=== PATIENT | female | born 1960 | race Caucasian/White ===

== ENCOUNTER 2020-08-20 07:50 | Emergency (ER) | payer OTHER, MEDICAID, SELFPAY ==
[2020-08-20 07:54] VITALS: BP 142/79; PULSE 72; RESP 20; TEMP 36.3; O2SAT 100
--- NOTE | 2020-08-20 08:10 | ED.DENTAL ---
HPI - Dental/Oral General Chief complaint: Dental/Oral Stated complaint: toothache/swelling Time Seen by Provider: 08/20/20 08:05 Source: patient and RN notes reviewed Mode of arrival: ambulatory Limitations: no limitations History of Present Illness HPI Narrative: Patient is 60 years old white female woke up yesterday morning with pain at the left lower teeth. Today surrounded by swelling. Last time was seen a dentist over 1 year ago. Patient denies any fever, chills, nausea, vomiting, headache Related Data Home Medications Medication Instructions Recorded Confirmed Sinus Med 02/16/19 celecoxib [Celebrex] 50 mg PO BID 02/16/19 insulin glargine [Lantus U-100 40 unit SUBCUT HS 02/16/19 Insulin] lorazepam 1 mg PO TID PRN 02/16/19 omeprazole 40 mg PO DAILY 02/16/19 Allergies Allergy/AdvReac Type Severity Reaction Status Date / Time hydrocodone Allergy Unknown Itching Verified 02/16/19 15:17 morphine Allergy Unknown Nausea and Verified 02/16/19 15:17 Vomiting tramadol Allergy Unknown Itching Verified 02/16/19 15:17 Review of Systems Review of Systems: Narrative: CONSTITUTIONAL: Denies fever, chills, or sweats. EYES: Denies visual changes, redness, or discharge. ENT: Denies rhinorrhea, congestion, sore throat, or otalgia. CARDIOVASCULAR: Denies chest pain, palpitations, or edema. RESPIRATORY: Denies cough or dyspnea. GASTROINTESTINAL: Denies abdominal pain, nausea, vomiting, or diarrhea. GENITOURINARY: Denies dysuria or hematuria. SKIN: Denies rash or itching. MUSCULOSKELETAL: Denies back pain, joint pain, or myalgia. NEUROLOGIC: Denies headache, numbness, or weakness. PSYCHIATRIC: Denies anxiety or depression. [facility] Past Medical History Medical History Diabetes Motor nerve conduction block Sciatica Surgical History Surgical History Hx of cholecystectomy Hx of tonsillectomy Family History Family History Father Cerebrovascular accident Family history of heart disease in male family member before age 55 Patient's father is Sibling Carcinoma of colon Family history of diabetes mellitus in first degree relative Grandparent Family history of malignant neoplasm of breast Mother Patient's mother is Social History Social History Smoking status: Never smoker Alcohol intake: never Gender identity (if verbalized by the patient): Female Exam Narrative: Exam Narrative: General appearance: Well-developed, well-nourished Skin: Normal color Head: Normocephalic, nontraumatic Eyes: Clear conjunctiva Neck: Supple, nontender Chest and respiratory: Airway patent, no respiratory distress, no accessory muscle use Heart: Regular rate/rhythm Neurologic: Alert and oriented ?3, [employer] is normal as tested, no gross motor deficit HENMT: Mouth: Yes Normal oral and palatal mucosa present, Yes lip normal, Yes tongue normal, Yes oropharynx normal and Yes moist mucous membranes Teeth and gingiva: abnormal tooth and associated gingiva (14 And 15 left upper), caries (Widespread), gingiva abnormal and poor dentition (Widespread) Course Course Emergency Course: Stable Vital Signs Vital signs: Vital Signs Temperature 36.3 C L 08/20/20 07:54 Pulse Rate 72 08/20/20 07:54 Respiratory Rate 20 08/20/20 07:54 Blood Pressure 142/79 H 08/20/20 07:54 Pulse Oximetry 100 08/20/20 07:54 Temperature 36.3 C L 08/20/20 07:54 Pulse Rate 72 08/20/20 07:54 Respiratory R
[2020-08-20 08:31] VITALS: PULSE 70; RESP 14; O2SAT 99
== END 2020-08-20 08:32 | disposition home or self-care (01) ==
LOC: ANHED 08:23
PROVIDERS: Emergency Provider Emergency Medicine; PCP Internal Medicine
DX: K02.9 Dental caries, unspecified (principal); E11.9 Type 2 diabetes mellitus without complications; Z79.4 Long term (current) use of insulin
CPT/HCPCS: 99283

== ENCOUNTER 2021-03-12 15:16 | Emergency (ER) | payer OTHER, MEDICAID, SELFPAY ==
[2021-03-12 15:21] VITALS: BP 166/100; PULSE 99; RESP 17; TEMP 36.4; O2SAT 98
--- NOTE | 2021-03-12 15:24 | ECG_ITS ---
Measurements Intervals [place] Rate: 94 P: 47 ID: [id number] QRS: 12 QRSD: 88 T: 55 QT: 338 QTc: 423 Interpretive Statements SINUS RHYTHM ATRIAL PREMATURE COMPLEX BORDERLINE R WAVE PROGRESSION, ANTERIOR LEADS CONSIDER INFERIOR INFARCT, AGE INDETERMINATE BORDERLINE ST ABNORMALITY- HIGH LATERAL LEADS BASELINE ARTIFACT- III, AVR, AVL, AVF, V5-V6 ABNORMAL ECG Electronically Signed On 03-12-2021 17:06:55 COMPUTER SERVICE TECHNICIAN by Raymundo Castañeda D.O.
[2021-03-12 15:26] LABS: Glucose Point of Care 210 mg/dl (65-105)
--- NOTE | 2021-03-12 19:52 | PC.NURSE ---
Called for patient to go to room, no answer and not seen in waiting room.
--- NOTE | 2021-03-12 20:14 | PC.NURSE ---
Patient called again to be taken to a room, no answer.
== END 2021-03-13 04:28 | disposition left against medical advice (07) ==
LOC: ANHED 20:23
PROVIDERS: Emergency Provider Emergency Medicine; PCP Internal Medicine
DX: Z53.21 Procedure and treatment not carried out due to patient leaving prior to being seen by health care provider (principal); R73.9 Hyperglycemia, unspecified
CPT/HCPCS: 82948; 93005; 99199

== ENCOUNTER 2021-12-24 12:59 | Emergency (ER) | payer MEDICARE, MEDICAID, SELFPAY ==
--- NOTE | ~2021-12-24 | XR_ITS ---
EXAMINATION: XR foot LT min 3V DATE: 12/24/2021 14:08 INDICATION: Left foot injury and pain and swelling. TECHNIQUE: 4 views of left foot were obtained. COMPARISON: None. FINDINGS: Bone alignment is normal. No fracture. There is mild osteoarthritis at first metatarsophala ngeal joint and some of the interphalangeal joints. There is an enthesophyte at plantar aspect of gavin caneal tuberosity. IMPRESSION: 1. Mild polyarticular osteoarthritis. Reviewed, dictated and finalized at location A.
--- NOTE | ~2021-12-24 | XR_ITS ---
EXAMINATION: XR ankle LT min 3V DATE: 12/24/2021 14:07 INDICATION: Left ankle injury and swelling. TECHNIQUE: 4 views of left ankle were obtained. COMPARISON: None. FINDINGS: Bone alignment is normal. No fracture. Joint spaces are normal. There is an enthesophyte at plantar aspect of calcaneal tuberosity. IMPRESSION: 1. No fracture. Reviewed, dictated and finalized at location A. IMPRESSION: 1. No fracture.
[2021-12-24 13:01] VITALS: BP 109/63; PULSE 82; RESP 14; TEMP 36.4; O2SAT 98
--- NOTE | 2021-12-24 14:21 | ED.LOWEXIN ---
HPI - Extremity Injury (Lower) General Chief Complaint: Extremity Injury, Lower Stated Complaint: left foot/ankle injury Time Seen by Provider: 12/24/21 13:11 History of Present Illness HPI Narrative: 61-year-old female presents the emergency room for evaluation of left ankle pain. Patient states 2 days ago she stepped in a hole twisting her ankle. Has been able to ambulate but with pain. Denies any other injuries. Related Data Home Medications Medication Instructions Recorded Confirmed Sinus Med 02/16/19 celecoxib 50 mg capsule (Celebrex) 50 mg PO BID 02/16/19 insulin glargine 100 unit/mL 40 unit subcut HS 02/16/19 subcutaneous solution (Lantus U-100 Insulin) lorazepam 1 mg tablet 1 mg PO TID PRN Anxiety 02/16/19 omeprazole 40 mg capsule,delayed 40 mg PO DAILY 02/16/19 release Allergies Allergy/AdvReac Type Severity Reaction Status Date / Time hydrocodone Allergy Unknown Itching Verified 03/12/21 15:24 morphine Allergy Unknown Nausea and Verified 03/12/21 15:24 Vomiting tramadol Allergy Unknown Itching Verified 03/12/21 15:24 Review of Systems Review of Systems: CONSTITUTIONAL: Denies fever, chills, or sweats. EYES: Denies visual changes, redness, or discharge. ENT: Denies rhinorrhea, congestion, sore throat, or otalgia. CARDIOVASCULAR: Denies chest pain, palpitations, or edema. RESPIRATORY: Denies cough or dyspnea. GASTROINTESTINAL: Denies abdominal pain, nausea, vomiting, or diarrhea. GENITOURINARY: Denies dysuria or hematuria. SKIN: Denies rash or itching. MUSCULOSKELETAL: Reports left ankle pain NEUROLOGIC: Denies headache, numbness, dizziness, or weakness. PSYCHIATRIC: Denies anxiety or depression. [facility] Past Medical History Medical History Diabetes Motor nerve conduction block Sciatica Surgical History Surgical History Hx of cholecystectomy Hx of tonsillectomy Family History Family History Father Cerebrovascular accident Family history of heart disease in male family member before age 55 Patient's father is Sibling Carcinoma of colon Family history of diabetes mellitus in first degree relative Grandparent Family history of malignant neoplasm of breast Mother Patient's mother is Social History Social History Smoking status: Never smoker Alcohol intake: never Gender identity (if verbalized by the patient): Female Exam Narrative: GENERAL: Well-appearing, well-nourished, no physical limitations, and in no acute distress. HEAD: Normocephalic, atraumatic. EYES: Conjunctivae normal, PERRLA and EOMI. CHEST: Clear to auscultation. No respiratory distress. No wheezes rales or rhonchi. No tenderness. HEART: Regular rate and rhythm. No murmur heard. Normal peripheral pulses. BACK: No CVA tenderness; No cervical/thoracic/lumbar tenderness, step-offs, bony abnormality; FROM EXTREMITIES: Left ankle: Tenderness to the lateral malleolus extending to the midfoot. Minimal soft tissue swelling. No joint laxity. Full range of motion. No obvious bony abnormality. Neurovascular is intact distally SKIN: Warm, dry, no rash. No noted wounds NEURO: No focal deficits. Alert and oriented x3. MAEW. CN's II-XI intact bilaterally, normal gait PSYCH: Cooperative. Normal mood and affect. Course Vital Signs Vital signs: Vital Signs Temperature 36.4 C 12/24/21 13:01 Pulse Rate 82 12/24/21 13:01 Respiratory Rate 14 12/24/21 13:01 Blood Pressure 109/63 12/24/21 13:01 Pulse Oximetry 98 12/24/21 13:01 Oxygen Delivery Room Air 12/24/21 13:01 Temperature 36.4 C 12/24/21 13:01 Pulse Rate 82 12/24/21 13:01 Respiratory Rate 14 12/24/21 13:01 Blood Pressure 109/63 12/24/21 13:01 Pulse Oximetry 9
[2021-12-24 14:51] VITALS: BP 134/86; PULSE 68; RESP 16; O2SAT 98
== END 2021-12-24 14:58 | disposition home or self-care (01) ==
PROVIDERS: Emergency Provider Nurse Practitioner Family; PCP Internal Medicine
DX: S93.402A Sprain of unspecified ligament of left ankle, initial encounter (principal); S96.912A Strain of unspecified muscle and tendon at ankle and foot level, left foot, initial encounter; E11.9 Type 2 diabetes mellitus without complications; Z79.4 Long term (current) use of insulin; X50.9XXA Other and unspecified overexertion or strenuous movements or postures, initial encounter
CPT/HCPCS: 73610; 73630; 99283

== ENCOUNTER 2024-09-11 10:18 | Emergency (ER) | payer MEDICARE, MEDICAID, SELFPAY ==
[2024-09-11 10:31] VITALS: BP 147/79; PULSE 80; RESP 18; TEMP 36.4; O2SAT 98
--- NOTE | 2024-09-11 10:44 | ED_ITS ---
HPI - Skin/Abscess/Foreign Bdy General Chief complaint: Skin/Abscess/Foreign Body Stated complaint: RASH Source: patient Mode of arrival: ambulatory Limitations: no limitations History of Present Illness HPI narrative: 64 y/o female presented for c/o rash to left forearm for 3 weeks. Says it is spreading from wrist to forearm. Described as red itchy blisters. Denies pain or drainage. Has been applying neosporin and calamine, and takes daily Zyrtec. Denies any other location of rash. Denies lip, tongue, or throat swelling, shortness of breath or wheezing. Denies changes to soap, detergent, lotion, or any other exposures. No one else in the house or any contacts with similar symptoms. Related Data Home Medications ?Medication ?Instructions ?Recorded ?Confirmed ?Last Taken ?Type Sinus Med 02/16/19 Unknown History celecoxib 50 mg capsule (Celebrex) 50 mg PO BID 02/16/19 Unknown History insulin glargine 100 unit/mL 40 unit subcut HS 02/16/19 Unknown History subcutaneous solution (Lantus U-100 Insulin) lorazepam 1 mg tablet 1 mg PO TID PRN Anxiety 02/16/19 Unknown History omeprazole 40 mg capsule,delayed 40 mg PO DAILY 02/16/19 Unknown History release levocetirizine 5 mg tablet mg 09/11/24 Unknown History semaglutide 1 mg/dose (4 mg/3 mL) mg subcut 09/11/24 Unknown History subcutaneous pen injector (Ozempic) Allergies Allergy/AdvReac Type Severity Reaction Status Date / Time hydrocodone Allergy Unknown Itching Verified 03/12/21 15:24 morphine Allergy Unknown Nausea and Verified 03/12/21 15:24 Vomiting tramadol Allergy Unknown Itching Verified 03/12/21 15:24 Review of Systems Review of Systems: CONSTITUTIONAL: Denies body aches, fever, chills, or sweats. EYES: Denies visual changes, redness, or discharge. ENT: Denies rhinorrhea, congestion CARDIOVASCULAR: Denies chest pain, palpitations, or edema. RESPIRATORY: Denies cough or dyspnea. GASTROINTESTINAL: Denies abdominal pain, nausea, vomiting, or diarrhea. SKIN: per HPI MUSCULOSKELETAL: Denies back pain, joint pain, or myalgia. NEUROLOGIC: Denies headache, numbness, tingling, or weakness. [facility] Past Medical History Medical History Diabetes Motor nerve conduction block Sciatica Surgical History Surgical History Hx of cholecystectomy Hx of tonsillectomy Family History Family History Father Cerebrovascular accident Family history of heart disease in male family member before age 55 Patient's father is Sibling Carcinoma of colon Family history of diabetes mellitus in first degree relative Grandparent Family history of malignant neoplasm of breast Mother Patient's mother is Social History Social History Smoking status: Never smoker Alcohol intake: never Gender identity (if verbalized by the patient): Female Comments At time of signature, I have reviewed and agree with nursing past medical, surgical, social and family history unless otherwise noted. Please see nursing chart for further information. There is no relevant family history pertinent to the presenting complaint Exam Narrative: GENERAL: Well-appearing HEAD: Normocephalic, atraumatic. EYES: conjunctivae clear, and EOMI. ENT: Mucous membranes moist. Oropharynx without edema, erythema or lesions. NECK: Supple. No lymphadenopathy CHEST: Clear to auscultation. HEART: Regular rate and rhythm. SKIN: Warm, dry. Scattered erythematous papular rash extending from left wrist to forearm in linear pattern. Nontender, no drainage. NEURO: Alert and oriented x3. Course Course Emergency Course: Patient is aware of diagnosis, understands and agrees to treatment plan. Anticipatory guidance given. Patient agrees to follow-up as directed and is aware of reasons to seek care at the emergency department. Portions of this record may have been created with voice recognition software Level of Care: Express Care Visit Vital Signs Vital signs: Vital Signs Temperature 97.5 F L 09/11/24 10:31 Pulse Rate 80 09/11/24 10:31 Respiratory Rate 18 09/11/24 10:31 Blood Pressure 147/79 H 09/11/24 10:31 Pulse Oximetry 98 09/11/24 10:31 Oxygen Delivery Room Air 09/11/24 10:31 Temperature 97.5 F L 09/11/24 10:31 Pulse Rate 80 09/11/24 10:31 Respiratory Rate 18 09/11/24 10:31 Blood Pressure 147/79 H 09/11/24 10:31 Pulse Oximetry 98 09/11/24 10:31 Oxygen Delivery Room Air 09/11/24 10:31 Reviewed MDM - Skin/Abscess/Foreign Bdy MDM Narrative Medical decision making narrative: Discussed physical exam findings c/w contact dermatitis. Advised supportive measures and signs/symptoms to go to the ER. Pt is appropriate for outpt treatment and f/u. Differential Diagnosis Differential diagnosis: Likely abscess of skin or subcutaneous tissue, viral exanthem, dermatophytosis, urticaria, herpes zoster, cellulitis, eczema, insect bites, impetigo and contact dermatitis Discharge Plan Discharge Clinical Impression: Contact dermatitis Patient Disposition: Home Condition: Stable Instructions: Antibiotic Form, Poison Ale (ED) Additional Instructions: Take steroids as directed. (monitor blood sugar closely) You can continue the Zyrtec Apply cool compresses to the sites of itching, avoid hot water. Avoid scratching to reduce the risk of infection Ok to apply Benadryl cream, calamine lotion, or IvyDry to the rash Follow up with your primary care provider as needed in 1 week Go to the ER for worsening symptoms or concerns (lip, tongue, throat swelling/itching, trouble breathing etc) Patient Language: Slovenian Prescriptions: New prednisone 20 mg tablet 20 mg PO DAILY Qty: 5 0RF No Action levocetirizine 5 mg tablet Ozempic 1 mg/dose (4 mg/3 mL) pen injector SUBCUT omeprazole 40 mg Capsule,Delayed Release(Dr/Ec) 40 mg PO DAILY celecoxib [Celebrex] 50 mg Capsule 50 mg PO BID Sinus Med lorazepam 1 mg Tablet 1 mg PO TID PRN (Reason: Anxiety) Lantus U-100 Insulin 100 unit/mL Solution 40 unit SUBCUT HS Follow-up/Referrals: Frank,Silverio Sherman MD [Primary Care Provider] - Time of Disposition: 10:52
--- OUTSIDE RECORDS SUMMARY | 2024-09-11 11:06 | XMS_ITS | Clinical Summary ---
Author Organization [facility] Address [address] [place] [address] Care Team Providers Care Peanut Roaster Name Role Phone Silverio Marie MD Primary Care Provider [phone] Allergies Active Allergy Reactions Criticality Noted Date Comments Venom-Honey Bee Swelling Medium 03/06/2017 Benzonatate Angioedema High 12/04/2022 Hydrocodone Hives Medium Hydrocodone-Acetaminophen Hives Medium 04/07/2014 Morphine Nausea & Vomiting Low Morphine Sulfate Nausea & Vomiting Low 04/07/2014 Spider Venom Swelling Medium 03/06/2017 Tramadol Hives Medium Medications levocetirizine (XYZAL) 5 mg tablet Take 1 tablet (5 mg total) by mouth nightly 1 Active Contour Next Test Strips strip TEST THREE TIMES A DAY 1 Active Microlet Lancet misc USE A NEW LANCET EACH TIME TO PRICK SKIN THREE TIMES A DAY DIRECTED 1 Active BD Laurie 2nd Gen Pen Needle 32 gauge x 5/32 needle USE ONE NEEDLE INTO THE SKIN TWICE A DAY 1 Active omeprazole (PriLOSEC) 40 mg capsule Take 1 capsule (40 mg total) by mouth daily before breakfast 1 Active Ozempic 1 mg/dose (4 mg/3 mL) pen injector injection INJECT 1MG UNDER THE SKIN ONCE WEEKLY, SAME DAY EACH WEEK, ROTATE SITE ABDOMEN, THIGHS, UPPER ARM. 2 Active TRESIBA 100 unit/mL (3 mL) pen for injection INJECT 30 UNITS BY SUBCUTANEOUS ROUTE EVERY DAY 2 Active TOUJEO MAX 300 unit/mL (3 mL) pen for injection INJECT 30 UNITS BY SUBCUTANEOUS ROUTE EVERY DAY 4 Active cyclobenzaprine (FLEXERIL) 5 mg tablet TAKE 1 TABLET BY MOUTH DAILY NEEDED FOR MUSCLE SPASMS. 30 tablet 4 Active Active Problems Problem Noted Date Diagnosed Date Presence of implanted infusion pump 08/09/2020 Sacroiliitis 02/24/2019 Myalgia 01/06/2019 Obesity due to excess calories without serious c omorbidity 01/06/2019 Degeneration of lumbar intervertebral disc 10/02 Chronic headache 03/06/2017 Cervicalgia 03/06/2017 Cervical radiculopathy 03/06/2017 Cervical spinal stenosis 03/06/2017 Spondylosis of cervical joint without myelopathy 03/06/2017 Chronic midline low back pain with bilateral sci atica 03/06/2017 Lumbosacral spondylosis without myelopathy 03/06 Radiculopathy, lumbosacral region 03/06/2017 Spinal stenosis of lumbar re gion without neurogenic claudication 03/06/2017 Postlaminectomy syndrome, lumbar 03/06/2017 Resolved Problems Problem Noted Date Diagnosed Date Resolved Date Chronic nonintractable headache 03/06/2017 Immunizations Immunization Administration Dates Next Due [employer] ([employer]) SARS-CoV-2 Vaccination 05/28/2020 Surgical History Surgery Date Site/Laterality Comments TONSILLECTOMY TUBAL LIGATION CHOLECYSTECTOMY OTHER SURGICAL HISTORY pain pump medtronic JOINT REPLACEMENT Right total knee Medical History Medical History Date Comments Type 2 diabetes mellitus (HCC) GERD (gastroesophageal reflux disease) Chronic pain disorder Family History Medical History Relation Name Comments Heart disease Father Hyperlipidemia Father Hyperlipidemia Mother Relation Name Status Comments Father Mother Social History Tobacco Use Types Packs/Day Years Used Date Smoking Tobacco: Never Smokeless Tobacco: Never Tobacco Cessation:Counseling Given: Not Answered Alcohol Use Standard Drinks/Week Comments No 0 (1 standard drink = 0.6 oz pur e alcohol) Comments No Sex and Gender Information Value Date Recorded Sex Assigned at Not on file 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 Gender Identity Female 07/16/2021 6:27 AM CDT Sexual Orientation Not on file Obstetrics History Last Filed Vital Signs Vital Sign Reading Time Taken Comments Blood Pressure 122/85 09/05/2023 10:34 AM CDT Pulse 81 09/05/2023 10:34 AM CDT Temperature 36.8 C (98.2 F) 07/25/2023 10:47 AM CDT Respiratory Rate 16 09/05/2023 10:3 4 AM CDT Oxygen Saturation 99% 09/05/2023 10: 34 AM CDT Inhaled Oxygen Concentration - - Weight 106.7 kg (235 lb 3.2 oz) 10/11/2021 3:05 PM CDT Height 160 cm (5' 3) 10/11/2021 3:05 PM CDT Body Mass Index 41.66 10/11/2021 3:05 PM CDT Plan of Treatment Health Maintenance Due Date Last Done Comments Cervical Cancer Screening 1961 Colon Cancer Screening-Colonoscopy 1961 DTaP/Tdap/Td Vaccine (1 - Tdap) 1972 Hepatitis B Screening 08/12/1979 Regular Well Visit/Exam 18-64 08/12/1979 Depression Screening 08/08/2018 08/08/2017, 08/09/19 18 Covid-19 Vaccine ( season) 2023 04/17/2021, 05/28/2020 Breast Cancer Screening-Mammogram 05/02/2024 05/02/2023, 05/02/2023 Hepatitis C Screening Completed 05/18/2014 Zoster Vaccine Completed 09/06/2020, 06/25/2020 Influenza Vaccine Completed 02/13/2024, , 02/01/2022, Additional history exists Pneumococcal vaccine <65 Aged Out No longer eligible based on patient's age to complete this topic Medical Devices Implanted Type Area Air Carrier Inspector Device Identifier Shelf Expiration Date Model / Serial / Lot Medtronic Neuro 8637-20 Synchromed Ii .78in [place] Filter Mesh Pouch Programmable - [id number] - [id number] Implanted:Qty: 1 on 08/05/2020 by Vidal Elliott MD at [facility] Left: Abdomen Medtronic Inc 10/06/2021 8637-20 / [id number] / Description:Medication trans ferred from original pump to replacement prior to implantation Explanted Type Area Air Carrier Inspector Device Identifier Shelf Expiration Date Model / Serial / Lot Intrathecal Pain Pump Explanted:Qty: 1 on 08/05/2020 by Vidal Elliott MD at [facility] Intrathecal Pain Pump Abdomen Medtronic Insurance MEDICARE TNA MEDICARE GOLD IDMO IDPA [employer] MEDICARE GOLD [facility] [place] [address] [facility] Care Teams Peanut Roaster Relationship Specialty Start Date End Date Silverio Marie MD PCP - General Internal Medicine 06/07/18
--- OUTSIDE RECORDS SUMMARY | 2024-09-11 11:06 | XMS_ITS | Clinical Summary ---
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 Gender Identity Not on file Sexual Orientation Not on file Plan of Treatment Health Maintenance Due Date Last Done Comments DIABETES ANNUAL FOOT EXAM 08/12/1979 DIABETES ANNUAL RETINAL EXAM 08/12/1979 DIABETES MICROALBUMIN ANNUAL SCREEN 08/12/1979 LDL CHOLESTEROL ANNUAL 08/12/1979 DTAP/TDAP/TD VACCINES (1 - Tdap) 1980 HPV/Cotest (21-29) 1982 CERVICAL CANCER SCREENING 08/12/1991 HPV/Cotest (30-65) 08/12/1991 PAP SMEAR 08/12/1991 COLORECTAL SCREENING 2006 Colorectal Cancer Screening 2006 FIT-DNA Q 3 years 2006 FIT/FOBT Q 1 year 2006 Flex Sig/CT Colonography Q 5 years 2006 ZOSTER VACCINE (1 of 2) 08/12/2011 DIABETES HBA1C Q 6 MONTHS 10/17/20232023, 10/11/2022, 04/12/2022, Additional history exists INFLUENZA VACCINE (#1) 2023 02/28/2023, 2021 BREAST CANCER SCREENING 05/02/2024 05/02/2023 RSV VACCINE (60+ or ) (1 - 1-dose 75+ series) 2036 Procedures Procedure Name Priority Date/Time Associated Diagnosis Comments MAMMO 3D TRACIE SCREEN BILAT W OR WO CAD Routine 05/02/2023 10:21 AM FLIGHT FOLLOWER Encounter for screening mammogram for malignant neoplasm of breast from Last 3 Months or Most Recently Relevant to Health Maintenance Results * MAMMO 3D TRACIE SCREEN BILAT W OR WO CAD (05/02/2023 10:21 AM FLIGHT FOLLOWER) Anatomical Region Laterality Modality Breast Bilateral Mammography 05/02/2023 10:2 1 AM FLIGHT FOLLOWER Impressions 05/02/2023 10:32 AM FLIGHT FOLLOWER IMPRESSION: BI-RADS Category 2, benign mammogram. Recommend yearly bilateral screening mammogram. Narrative 05/02/2023 10:32 AM FLIGHT FOLLOWER EXAM: MAMMO 3D TRACIE SCREEN BILAT W OR WO CAD DATE: 05/02/2023 CLINICAL HISTORY: Screening in an asymptomatic patient with a family history of breast cancer TECHNIQUE: Bilateral full field digital mammography and digital tomosynthesis were performed in the CC and MLO projections. Comparison was made to a prior mammogram performed June 19, 2014. CAD was utilized. FINDINGS: Scattered fibroglandular densities are present. There has been some interval involution of the breast parenchyma since the 2015 exam. Scattered bilateral calcifications are present without definite suspicious feature. Mild arterial calcifications are also present in the left breast. There is no suspicious asymmetry or mass or area of architectural distortion. Silverio Marie MD MAMMO ORDERABLES Final Result from Last 3 Months or Most Recently Relevant to Health Maintenance Insurance [facility] [id number] [facility]
--- OUTSIDE RECORDS SUMMARY | 2024-09-11 11:06 | XMS_ITS | Referral Summary ---
Author Organization [facility] Address [address] [place] [address] Care Team Providers Care Historic Sites Registrar Name Role Phone Silverio Marie MD Primary Care Provider [phone] Allergies Active Allergy Reactions Criticality Noted Date [...] 03/06/2017 Immunizations Immunization Administration Dates Next Due Cece (J&J) SARS-CoV-2 Vaccination 05/28/2020 Social History Tobacco Use Types Packs/Day Years Used Date Smoking Tobacco: Never Smokeless Tobacco: Never Tobacco Cessation:Counseling Given: Not Answered Alcohol Use Standard Drinks/Week Comments No 0 (1 standard drink = 0.6 oz pur e alcohol) Comments No Sex and Gender Information Value Date Recorded Sex Assigned at Not on file Legal Sex Female 2:34 PM 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 Gender Identity Female 07/16/2021 6:27 AM CDT Sexual Orientation Not on file Last Filed Vital Signs Vital Sign Reading [...] 10/11/2021 3:05 PM CDT Plan of Treatment Not on file Medical Devices Implanted Type Area Tourist Cabin Keeper Device Identifier Shelf Expiration Date Model / Serial / Lot Medtronic Neuro 8637-20 Synchromed Ii .78in [place] Filter Mesh Pouch Programmable - [id number] - [id number] Implanted:Qty: 1 on 08/05/2020 by Vidal Elliott MD at [facility] Left: Abdomen Med[employer]onic Inc 10/06/2021 8637-20 / [id number] / Description:Medication trans ferred from original pump to replacement prior to implantation Explanted Type Area Tourist Cabin Keeper Device Identifier Shelf Expiration Date Model / Serial / Lot Intrathecal Pain Pump Explanted:Qty: 1 on 08/05/2020 by Vidal Elliott MD at [facility] Intrathecal Pain Pump [place]dom[place] [address] [place] [address] [place] [address] [employer] [place] [address] [facility] [employer] GOLD [facility] [employer] [facility] Care Teams Historic Sites Registrar Relationship Specialty Start Date End Date Silverio Marie MD PCP - General Internal Medicine 06/07/18
--- OUTSIDE RECORDS SUMMARY | 2024-09-11 11:06 | XMS_ITS | Clinical Summary ---
Author Organization [facility] Care Team Providers Care Acquisition Professional Name Role Phone Unavailable Primary Care Provider Unavailabl e Social History Tobacco Use Types Packs/Day Years Used Date Smoking Tobacco: Never Assessed Comments Unknown Sex and Gender Information Value Date Recorded Sex Assigned at Not on file Legal Sex Female 9:50 PM CDT Gender Identity Not on file Sexual Orientation Not on file Plan of Treatment Health Maintenance Due Date Last Done Comments Hepatitis C Virus (HCV) Screening 1961 TdaP Immunization 1961 Pap Smear 1982 Cervical Cancer Screening (CCS) 08/12/1991 HPV/Cotest 08/12/1991 Colonoscopy 2006 Colorectal Cancer Screening 2006 Cologuard 08/12/2011 Immunochemical Fecal Occult Blood 08/12/2011 Mammogram 08/12/2011 Pneumococcal Immunization (5 0+ years) (1 of 1 - PCV) 08/12/2011 Zoster Immunization (1 of 2) 08/12/2011 Influenza Immunization (#1) 2023 SARS-COV-2 Immunization ( - 2023- season) 2023 Respiratory Syncytial Virus (RSV) Immunization (Adult) (1 - 1-dose 75+ series) 2036 Hepatitis B Immunization Aged Out No longer eligible based on patient's age to complete this topic Meningococcal Immunization (ACWY) Aged Out No longer eligible based on patient's age to complete this topic Pneumococcal Immunization Combined Aged Out No longer eligible based on patient's age to complete this topic Rotavirus Immunization Aged Out No lo nger eligible based on patient's age to complete this topic
--- OUTSIDE RECORDS SUMMARY | 2024-09-11 11:06 | XMS_ITS | CONTINUITY OF CARE DOCUMENT ---
Author Name verónica sanches Address Unknown Organization [facility] Address [address] [place] [address] Phone [phone] Care Team Providers Care Nurse Practitioner Home Assessments Name Role Phone Rodrick GARCIA, Mario Unavailable ANDREW PUENTE MD Unavailable INSURANCE PROVIDERS Payer name Policy type / Coverage type Eder red constitution party ID [employer] AND FAMILY [employer] Medicaid 0 [id number] [place] [employer] Medicare [id number]
--- OUTSIDE RECORDS SUMMARY | 2024-09-11 11:11 | XMS_ITS | CONTINUITY OF CARE DOCUMENT ---
Author Name verónica sanches Address Unknown Organization [facility] Address [address] [place] [address] Phone [phone] Care Team Providers Care Dish Maker Name Role Phone Rodrick GARCIA, Mario Unavailable ANDREW PUENTE MD Unavailable [phone] INSURANCE PROVIDERS Payer name Policy type / Coverage type Eder red green party ID HEALTHCARE AND FAMILY SERVICES Medicaid 0 [id number] [place] MEDIC[place] Medicare [id number]
== END 2024-09-11 10:56 | disposition home or self-care (01) ==
PROVIDERS: Emergency Provider Nurse Practitioner Family; PCP Internal Medicine
DX: L25.9 Unspecified contact dermatitis, unspecified cause (principal); E11.9 Type 2 diabetes mellitus without complications
CPT/HCPCS: 99213; G0463